=== PATIENT | female | born 1990 | race Caucasian/White ===

== ENCOUNTER 2019-08-11 05:41 | Outpatient (CLI) | payer OTHER ==
[~2019-08-11] VITALS: Ht 175.3 cm; Wt 133.0 kg
[2019-08-11] MEDS ORDERED: LACTATED RINGERS 1,000 ML IV SCH ×2 (05:47→07:47)
[2019-08-11] MEDS ORDERED: ONDANSETRON 2MG/ML, 2ML ONE (05:48)
[2019-08-11] MEDS ORDERED: PLEASE ENTER ALLERGIES MC SCH (06:00)
[2019-08-11] MEDS ORDERED: ONDANSETRON 2MG/ML, 2ML IVPush PRN (06:00)
[2019-08-11 06:31] LABS: MICROSCOPIC INDICATED
== END 2019-08-11 08:10 | disposition home or self-care (01) ==
LOC: LDOP 05:41 → EDBD 05:41 → LDOP 08:10
PROVIDERS: ATTEND Obstetrics & Gynecology
DX: O21.9 Vomiting of pregnancy, unspecified (principal); O26.899 Other specified pregnancy related conditions, unspecified trimester; R10.9 Unspecified abdominal pain; Z3A.00 Weeks of gestation of pregnancy not specified
CPT/HCPCS: 59025; 81001; 87086; 96361; 96374; 99201; J2405; J7120; 96360; G0463